=== PATIENT | female | born 1975 | race African-American/Black ===

== ENCOUNTER 2017-04-19 11:39 | Emergency (ER) | payer OTHER, BC ==
[2017-04-19 11:42] VITALS: BP 138/91; PULSE 73; TEMP 97.9; BMI 28.3
--- NOTE | 2017-04-19 12:11 | PDOC ---
Post Exposure HPI - General Chief Complaint: Non EmpBld/Body Flud Exposure Stated Complaint: BODY EXPOSURE - YPD Time Seen by Provider: 04/19/17 11:53 History Source: Patient Exam Limitations: No Limitations - History of Present Illness Timing: just prior to arrival Exposed Location: Bilateral: Hand(s) (touched blood streaked door jamb) Assessing Significant Risk PEP: No Percutaneous, No Mucocutaneous, No Non- intact Skin, No Blood, No Visibily Bloody Fluid, No Potentially Infectious Fluid , No Source patient is potentially HIV infected, No Mucocutaneous - Other Body fluid Past History - Travel Traveled outside of the country in the last 30 days: No Close contact w/someone who was outside of country & ill: No - Past Medical History Allergies/Adverse Reactions: Allergies sulfamethoxazole [From Bactrim] Allergy (Verified 04/19/17 11:40) Itching/hives trimethoprim [From Bactrim] Allergy (Verified 04/19/17 11:40) hives/itching Home Medications: Ambulatory Orders Cephalexin [Keflex] 250 mg PO QID #28 capsule 12/02/15 Diphenhydramine HCl [Benadryl -] 25 mg PO Q6H #28 capsule 12/02/15 General: Yes: no pertinent history Surgical History: Yes: No Surgical History Psych History: Yes: No Pertinent Psych Hx. - Family History Significant Family History: Yes: no pertinent family hx - Immunization History Tetanus Status: Unknown - Social History Smoking Status: Never smoked General Medical PMHX - Other General PMHX Angina: No Cardiac Arrhythmia: No Arthritis: No GERD: No Glaucoma: No CO: No GI Ulcer Disease: No Peripheral Vascular Disease: No Review of Systems - Review of Systems Able to Perform ROS?: Yes Is the patient limited [place]ian proficient: No Constitutional: No: Symptoms Reported HEENTM: No: Symptoms Reported Respiratory: No: Symptoms reported Cardiac (ROS): No: Symptoms Reported ABD/GI: No: Symptoms Reported : No: Symptoms Reported Musculoskeletal: No: Symptoms Reported Integumentary: No: Symptoms Reported Neurological: No: Symptoms reported Endocrine: No: Symptoms Reported Hematologic/Lymphatic: No: Symptoms Reported All Other Systems: Reviewed and Negative *Physical Exam - Vital Signs Last Vital Signs Temp Pulse Resp BP Pulse Ox 97.9 F 73 18 138/91 100 04/19/17 11:41 04/19/17 11:41 04/19/17 11:41 04/19/17 11:41 04/19/17 11:41 - Physical Exam General Appearance: Yes: Appropriately Dressed. No: Apparent Distress HEENT: positive: ANNCI, Normal ENT Inspection Neck: positive: Trachea midline, Supple Respiratory/Chest: positive: Lungs Clear, Normal Breath Sounds. negative: Chest Tender, Respiratory Distress Cardiovascular: positive: Regular Rhythm, Regular Rate, S1, S2. negative: Edema , Murmur Gastrointestinal/Abdominal: positive: Normal Bowel Sounds, Soft. 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 referral to PCP: No Medical Decision Making - Medical Decision Making 04/19/17 12:39 A: 42yo woman with exposure to blood/body fluids. post exposure counseling provided. pt refusing bloodwork and PEP at this time. *DC/Admit/Observation/Transfer Diagnosis at time of Disposition: Exposure to blood or body fluid - Discharge Dispostion Disposition: HOME Condition at time of disposition: Stable Admit: No - Referrals - Patient Instructions Printed Discharge Instructions: How to Handle Body Fluid Exposure -- Non- Healthcare Worker (At Home, [facility] Print Language: NORWEGIAN - Post Discharge Activity Work/School Note: Back to Work
== END 2017-04-19 12:48 | disposition home or self-care (01) ==
LOC: JERFT 11:39
DX: Z77.21 Contact with and (suspected) exposure to potentially hazardous body fluids (principal); Y35.891A Legal intervention involving other specified means, law enforcement official injured, initial encounter; Y93.89 Activity, other specified; Y92.89 Other specified places as the place of occurrence of the external cause; Y99.0 Civilian activity done for income or pay
CPT/HCPCS: 99281-25

== ENCOUNTER 2020-07-12 14:37 | Emergency (ER) | payer OTHER ==
[2020-07-12 14:43] VITALS: BMI 25.7
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
[2020-07-12] MEDS ORDERED: IBUPROFEN 400 MG TABLET (FP) PO ONE ×2 (15:12→15:15)
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
[2020-07-12 15:25] VITALS: BP 134/97; PULSE 95; TEMP 99.3
== END 2020-07-12 15:31 | disposition home or self-care (01) ==
LOC: FER 14:37
DX: S93.402A Sprain of unspecified ligament of left ankle, initial encounter (principal); S83.92XA Sprain of unspecified site of left knee, initial encounter
CPT/HCPCS: 99283-25

== ENCOUNTER 2022-06-13 17:45 | Emergency (ER) | payer OTHER ==
[2022-06-13] MEDS ORDERED: IBUPROFEN 400 MG TABLET (FP) PO ONE ×2 (18:11→18:35)
[2022-06-13 18:12] VITALS: BP 132/71; PULSE 77; RESP 20; TEMP 98.2; BMI 25.7
== END 2022-06-13 18:52 | disposition home or self-care (01) ==
LOC: FER 17:45
DX: S86.911A Strain of unspecified muscle(s) and tendon(s) at lower leg level, right leg, initial encounter (principal)
CPT/HCPCS: 99283-25

== ENCOUNTER 2024-08-07 19:30 | Emergency (ER) | payer OTHER ==
[2024-08-07 19:41] VITALS: BP 142/96; PULSE 99; RESP 18; TEMP 98.8; BMI 27.4
== END 2024-08-07 20:42 | disposition home or self-care (01) ==
LOC: FER 19:30
DX: S63.634A Sprain of interphalangeal joint of right ring finger, initial encounter (principal); S80.01XA Contusion of right knee, initial encounter; S80.02XA Contusion of left knee, initial encounter; W50.0XXA Accidental hit or strike by another person, initial encounter; Y35.811A Legal intervention involving manhandling, law enforcement official injured, initial encounter
CPT/HCPCS: 73562-TC-LT-FY; 99283-25